=== PATIENT | male | born 1980 | race Caucasian/White ===

== ENCOUNTER 2021-01-13 21:54 | Emergency (ER) | payer OTHER ==
[~2021-01-13] VITALS: Ht 175.3 cm; Wt 8.0 kg
[2021-01-13] MEDS ORDERED: LIDOcaine 1% W/epiNEPHrine 1:200,000 10ml vial IJ ONE (22:30)
[2021-01-13 23:09] VITALS: BP 123/69
== END 2021-01-13 23:11 | disposition home or self-care (01) ==
LOC: ER 21:55
DX: S01.81XA Laceration without foreign body of other part of head, initial encounter (principal); W22.8XXA Striking against or struck by other objects, initial encounter; Y93.89 Activity, other specified; Y92.89 Other specified places as the place of occurrence of the external cause; Y99.8 Other external cause status
CPT/HCPCS: 12013; 99282